=== PATIENT | female | born 1950 | race Caucasian/White ===

== ENCOUNTER → 2019-03-24 | Outpatient (REF) | payer MEDICARE, BC | LOC: M LAB REF 13:41 | PROVIDERS: ATTEND Nurse Practitioner Family | DX: R30.0 Dysuria (principal) ==

== ENCOUNTER → 2019-11-30 | Outpatient (REF) | payer MEDICARE | LOC: M LAB REF 16:03 | PROVIDERS: ATTEND Registered Nurse | DX: R53.83 Other fatigue (principal); K21.9 Gastro-esophageal reflux disease without esophagitis ==

== ENCOUNTER → 2020-12-23 | Outpatient (REF) | payer MEDICARE ==
[2020-12-23 17:45] LABS: BACTERIA, URINE AUTO 1+ (NEGATIVE); MUCUS, URINE SMALL (NEGATIVE); RBC, URINE AUTO 3 /HPF (0-3); SQUAMOUS EPITHELIAL CELL UR AU 3 /HPF (0-6); WBC, URINE AUTO 7 /HPF (0-3)
== END ==
LOC: M LAB REF 16:22
PROVIDERS: ATTEND Physician Assistant Medical
DX: R35.0 Frequency of micturition (principal)

== ENCOUNTER → 2020-12-28 | Outpatient (CLI) | payer MEDICARE ==
--- NOTE | 2020-12-28 15:46 | REP ---
INDICATION: FLANK AND PELVIC PAIN WITH NAUSEA. COMPARISON: None. TECHNIQUE: Urinary tract sonography. FINDINGS: Scanning at the level of the urinary bladder shows no abnormality. Renal cortical echogenicity pattern is normal bilaterally and contours are smooth. There is no evidence of hydronephrosis, mass, or calculus in either kidney. The right kidney measures 10.3 x 5.6 x 4.9 cm. Left renal dimensions are 10.6 x 4.7 x 5.1 cm. There is a cyst in the left kidney upper pole region measuring 1.7 x 1.3 x 1.2 cm. IMPRESSION: Small cyst upper pole left kidney. No hydronephrosis seen. Otherwise negative urinary tract sonography.. <Electronically signed by Juan Louise > 12/28/20 [id number]
== END ==
LOC: M RAD 14:53
PROVIDERS: ATTEND Physician Assistant Medical
DX: R10.2 Pelvic and perineal pain (principal); R11.0 Nausea; N28.1 Cyst of kidney, acquired

== ENCOUNTER → 2021-02-03 | Outpatient (CLI) | payer MEDICARE ==
[~2021-02-03] MED LIST: BUSP10TA PO; CELE1CAP7 PO; CLON-412 PO; D200CAP3 PO; DULO1CAP6 PO; ISRA5CAP PO; OCUV1CAP4 PO; OMEGCAP4 PO; OMEP-218 PO; POTA1TAB23 PO; TORS20TA2 PO; VITMTA PO
== END ==
LOC: M LABSMTC 09:05
PROVIDERS: ATTEND Anesthesiology
DX: Z01.812 Encounter for preprocedural laboratory examination (principal); Z20.822 Contact with and (suspected) exposure to COVID-19

== ENCOUNTER 2021-02-08 10:48 | Day surgery (SDC) | payer MEDICARE ==
[~2021-02-08] VITALS: Ht 160 cm; Wt 108.9 kg
[~2021-02-08 10:48] MED LIST changes: +NS 1,000 ML IV ONE
[2021-02-08] MEDS ORDERED: propofoL 500 MG/50 ML VIAL As Ordered ONE (12:12)
[2021-02-08] MEDS ORDERED: LIDOCAINE 2% 100MG/5ML SDV (FOR ANES.) As Ordered ONE (12:17)
[2021-02-08] MEDS ORDERED: propofoL 200 MG/20 ML VIAL As Ordered ONE (13:30)
[2021-02-08 14:05] VITALS: BP 138/80
--- NOTE | 2021-02-08 14:12 | ROOR ---
Patient Name: Sandra Acevedo Procedure Date: 02/08/2021 12:38 PM Date of : 1950 Age: 70 Room: [facility] Gender: Female Note Status: Finalized Procedure: Colonoscopy Indications: High risk colon cancer surveillance: Personal history of colonic polyps, Last colonoscopy 3 years ago Providers: Keegan Burns MD Referring MD: Sandra Contreras NP Requesting Provider: Medicines: Monitored Anesthesia Care Complications: No immediate complications. Procedure: Pre-Anesthesia Assessment: - Prior to the procedure, a History and Physical was performed, and patient medications and allergies were reviewed. The patient is competent. The risks and benefits of the procedure and the sedation options and risks were discussed with the patient. All questions were answered and informed consent was obtained. Patient identification and proposed procedure were verified by the physician, the nurse and the corporate pilot in the procedure room. Mental Status Examination: alert and oriented. Prophylactic Antibiotics: The patient does not require prophylactic antibiotics. Prior Anticoagulants: The patient has taken no previous anticoagulant or antiplatelet agents. ASA Grade Assessment: III - A patient with severe systemic disease. After reviewing the risks and benefits, the patient was deemed in satisfactory condition to undergo the procedure. The anesthesia plan was to use monitored anesthesia care (MAC). Immediately prior to administration of medications, the patient was re-assessed for adequacy to receive sedatives. The heart rate, respiratory rate, oxygen saturations, blood pressure, adequacy of pulmonary ventilation, and response to care were monitored throughout the procedure. The physical status of the patient was re-assessed after the procedure. The Colonoscope was introduced through the anus and advanced to the cecum, identified by the ileocecal valve. The colonoscopy was performed with moderate difficulty due to a redundant colon. Successful completion of the procedure was aided by applying abdominal pressure. The patient tolerated the procedure well. The quality of the bowel preparation was adequate to identify polyps. Findings: Three sessile polyps were found in the ascending colon. The polyps were 5 to 10 mm in size. These polyps were removed with a cold snare. Resection and retrieval were complete. The pathology specimen was placed into Bottle Number 1. Estimated blood loss was minimal. Three sessile polyps were found from 70 to 90 cm proximal to the anus. The polyps were 6 to 15 mm in size. These polyps were removed with a cold snare. Resection and retrieval were complete. To prevent bleeding after the polypectomy, one hemostatic clip was successfully placed (MR conditional). There was no bleeding at the end of the procedure. Estimated blood loss was minimal. Several small pale polyps consistent with hyperplastic polyps were noted in the sigmoid and not resected. A 20 mm polyp was found in the sigmoid colon. The polyp was sessile. This was a raised somewhat darker appearing lesion with a coarse "cobblestone" appearance. There was no ulceration. It was soft. Possibly a chronically irritated mucosal fold. Appearance similar to the largest polyp from the group from 70-90 cm. I elected not to attmept resection and await path fom the previously resected polyps. Impression: - Three 5 to 10 mm polyps in the ascending colon, removed with a cold snare. Resected and retrieved. - Three 6 to 15 mm polyps from 70 to 90 cm proximal to the anus, removed with a cold snare. Resected and retrieved. Clip (MR conditional) was placed. - One 20 mm polyp in the sigmoid colon. Recommendation: - Discharge patient to home. - Resume previous diet. - Continue present medications. - Await pathology results. - Return to endoscopist as previously scheduled. Procedure Code(s): --- Professional --- 99290, Colonoscopy, flexible; with removal of tumor(s), polyp(s), or other lesion(s) by snare technique Diagnosis Code(s): --- Professional --- K63.5, Polyp of colon Z86.010, Personal history of colonic polyps CPT copyright 2019 [employer] [place] [employer]. All rights reserved. The codes documented in this report are preliminary and upon extractor operator review may be revised to meet current compliance requirements. Keegan Burns MD Keegan Burns MD 02/08/2021 2:11:44 PM Electronically signed by Keegan Burns MD Number of Addenda: 0 Note Initiated On: 02/08/2021 12:38 PM Estimated Blood Loss: Estimated blood loss was minimal.
== END 2021-02-08 14:24 | disposition home or self-care (01) ==
LOC: M OPP 10:48
PROVIDERS: ATTEND Surgery
DX: Z12.11 Encounter for screening for malignant neoplasm of colon (principal); Z86.010 Personal history of colon polyps; E66.01 Morbid (severe) obesity due to excess calories; K63.5 Polyp of colon; Z88.8 Allergy status to other drugs, medicaments and biological substances; Z87.891 Personal history of nicotine dependence

== ENCOUNTER 2021-09-13 11:05 | Day surgery (SDC) | payer MEDICARE ==
[~2021-09-13] VITALS: Ht 175.3 cm; Wt 113.9 kg
[~2021-09-13 11:05] MED LIST changes: +AMIT25TA17 PO; +AMLO1TAB25 PO; +CYCL-707 PO; +DOCU-153 PO; +LIDOCAINE 2% 100MG/5ML SDV (FOR ANES.) As Ordered ONE; +MELO15TA28 PO; +OMEP-173 PO; -OMEP-218 PO; +propofoL 200 MG/20 ML VIAL As Ordered ONE
[2021-09-13] MEDS ORDERED: propofoL 200 MG/20 ML VIAL As Ordered ONE (15:14)
[2021-09-13 16:15] VITALS: BP 136/74
== END 2021-09-13 16:26 | disposition home or self-care (01) ==
LOC: M OPP 11:05
PROVIDERS: ATTEND Surgery
DX: K63.5 Polyp of colon (principal); Z86.010 Personal history of colon polyps; Z09 Encounter for follow-up examination after completed treatment for conditions other than malignant neoplasm; Z79.84 Long term (current) use of oral hypoglycemic drugs; Z79.899 Other long term (current) drug therapy; Z88.8 Allergy status to other drugs, medicaments and biological substances; Z87.891 Personal history of nicotine dependence

== ENCOUNTER → 2021-12-18 | Outpatient (CLI) | payer MEDICARE, BC ==
[~2021-12-18] MED LIST changes: -LIDOCAINE 2% 100MG/5ML SDV (FOR ANES.) As Ordered ONE; -NS 1,000 ML IV ONE; -propofoL 200 MG/20 ML VIAL As Ordered ONE
[2021-12-18 11:01] LABS: HEMATOCRIT 45.9 % (36.0-47.0); HEMOGLOBIN 15.3 g/dl (12.0-15.5); MEAN CORPUSCULAR HEMOGLOBIN 29.5 pg (27.0-33.0); MEAN CORPUSCULAR HGB CONC 33.3 g/dl (32.0-36.5); MEAN CORPUSCULAR VOLUME 88.6 fl (80.0-96.0); PLATELET COUNT, AUTOMATED 273 10^3/uL (150-450); RED BLOOD COUNT 5.18 10^6/uL (4.00-5.40); WHITE BLOOD COUNT 7.9 10^3/uL (4.0-10.0)
[2021-12-18 11:13] LABS: INR 0.96; PROTHROMBIN TIME 13.2 SECONDS (12.7-14.5)
[2021-12-18 11:28] LABS: ERYTHROCYTE SEDIMENTATION RATE 7 mm/hr (0-30)
[2021-12-18 11:47] LABS: ALBUMIN 3.8 GM/DL (3.2-5.2); BILIRUBIN,TOTAL 0.5 MG/DL (0.2-1.0); CALCIUM LEVEL 8.5 MG/DL (8.8-10.2); CREATININE FOR GFR 1.07 MG/DL (0.55-1.30); GLOMERULAR FILTRATION RATE 53.5 (>39); POTASSIUM SERUM 3.8 MEQ/L (3.5-5.1); TOTAL PROTEIN 6.9 GM/DL (6.4-8.2)
== END ==
LOC: M RAD 09:52
PROVIDERS: ATTEND Orthopaedic Surgery
DX: M17.11 Unilateral primary osteoarthritis, right knee (principal)

== ENCOUNTER 2023-09-12 12:13 | Inpatient (IN) | payer MEDICARE ==
[~2023-09-12] VITALS: Ht 160 cm; Wt 132.3 kg
[~2023-09-12 12:13] MED LIST changes: -AMIT25TA17 PO; +AMIT25TA19 PO; -CELE1CAP7 PO; +CELE1CAP99 PO; -DOCU-153 PO; +STOO100C30 PO
[2023-09-12] MEDS ORDERED: GNP250TA9 PO (12:30)
[2023-09-12 13:19] LABS: HEMATOCRIT 52.5 % (36.0-47.0); HEMOGLOBIN 17.4 g/dl (12.0-15.5); MEAN CORPUSCULAR HEMOGLOBIN 29.7 pg (27.0-33.0); MEAN CORPUSCULAR HGB CONC 33.1 g/dl (32.0-36.5); MEAN CORPUSCULAR VOLUME 89.7 fl (80.0-96.0); PLATELET COUNT, AUTOMATED 331 10^3/uL (150-450); RED BLOOD COUNT 5.85 10^6/uL (4.00-5.40); WHITE BLOOD COUNT 24.4 10^3/uL (4.0-10.0)
[2023-09-12 13:35] LABS: CK-MB VALUE MASS 3.2 NG/ML (<3.6)
[2023-09-12 13:39] LABS: ALBUMIN 3.2 G/DL (3.2-5.2); BILIRUBIN,DIRECT 0.3 MG/DL (<0.4); BILIRUBIN,TOTAL 0.9 MG/DL (0.3-1.2); TOTAL PROTEIN 6.5 G/DL (5.7-8.2)
[2023-09-12 13:40] LABS: MB/CK RELATIVE INDEX 2.96 (< OR =4)
[2023-09-12 13:59] LABS: LYMPHOCYTES 6 % (16-44); MONOCYTES 3 % (0-5); NEUTROPHILS 78 % (28-66)
[2023-09-12 14:00] LABS: PLATELET ESTIMATE NORMAL (NORMAL)
[2023-09-12 14:37] LABS: CK-MB VALUE MASS 3.6 NG/ML (<3.6)
[2023-09-12 14:46] LABS: MB/CK RELATIVE INDEX 3.3 (< OR =4)
[2023-09-12] MEDS: NS 1,000 ML IV ONE ×2 (14:50→15:13)
[2023-09-12 14:57] LABS: CALCIUM LEVEL 8.5 MG/DL (8.3-10.6); CREATININE FOR GFR 1.97 MG/DL (0.55-1.30); GLOMERULAR FILTRATION RATE 26.3 (>39); POTASSIUM SERUM 4.2 MMOL/L (3.5-5.1)
[2023-09-12] MEDS: fentaNYL 100 MCG/2 ML INJECTION IV ONE (15:13)
[2023-09-12] MEDS: PIPERACILLIN/TAZOBACTAM SOD 4.5 GM in D5W MINI-BAG PLUS 50 ML IV ONE (16:23)
[2023-09-12] MEDS ORDERED: MAALOX 30 ML SUSP *UDC PO PRN (17:20)
[2023-09-12] MEDS ORDERED: THERTAB52 PO (18:04)
[2023-09-12] MEDS ORDERED: HOME MED LIST COMPLETE! XX SCH (18:05)
[2023-09-12] MEDS: NS 1,000 ML IV SCH (19:31)
[2023-09-12] MEDS: MORPHINE 2 MG/ML 1ML VIAL IV PRN (19:32)
[2023-09-12 19:36] LABS: PROCALCITONIN 10.58 ng/ml
[2023-09-12 19:37] LABS: C REACTIVE PROTEIN QUANTITATIV 27.8 MG/DL (<1.0)
[2023-09-12] MEDS: HEPARIN SOD (PORCINE) 5000UNITS/ML 1ML VIAL/SYRINGE SC SCH (21:12)
[2023-09-12] MEDS: ACETAMINOPHEN TAB 650MG DOSE (2X325MG) PO PRN (21:15)
[2023-09-12] MEDS: PIPERACILLIN/TAZOBACTAM SOD 3.375 GM in D5W MINI-BAG PLUS 50 ML IV SCH (21:57)
[2023-09-13] MEDS ORDERED: DEXTROMETHORPHAN 60MG/10ML SUSP 90ML BTL(DELSYM) PO PRN (02:35)
[2023-09-13] MEDS ORDERED: ALBUTEROL SULFATE 2.5MG/0.5ML INH NEB SOLN NEB PRN (02:35)
[2023-09-13] MEDS: methylPREDNISolone 125MG 2ML VIAL IV ONE (03:11)
[2023-09-13] MEDS: IPRATROPIUM 0.5MG/ALBUTEROL 2.5MG INH SOL UD 3ML (DUONEB) NEB PRN (03:19)
[2023-09-13] MEDS ORDERED: busPIRone 10 MG TAB PO PRN (07:20)
[2023-09-13] MEDS ORDERED: CYCLOBENZAPRINE 10MG TABLET PO PRN (07:20)
[2023-09-13 09:04] LABS: BASO # 0.1 10^3/uL (0.0-0.2); BASO % 0.3 % (0.0-1.0); HEMATOCRIT 44.2 % (36.0-47.0); LYMPH # 1.1 10^3/uL (1.5-5.0); LYMPH % 4.5 % (24.0-44.0); MEAN CORPUSCULAR HEMOGLOBIN 29.3 pg (27.0-33.0); MEAN CORPUSCULAR HGB CONC 33.3 g/dl (32.0-36.5); MONO # 0.4 10^3/uL (0.0-0.8); MONO % 1.7 % (2.0-8.0); NEUTROPHILS # 21.7 10^3/uL (1.5-8.5); NEUTROPHILS % 92.5 % (36.0-66.0); PLATELET COUNT, AUTOMATED 297 10^3/uL (150-450); RED BLOOD COUNT 5.02 10^6/uL (4.00-5.40); WHITE BLOOD COUNT 23.4 10^3/uL (4.0-10.0)
[2023-09-13 09:13] LABS: HEMOGLOBIN 14.7 g/dl (12.0-15.5)
[2023-09-13 09:31] LABS: CALCIUM LEVEL 8.1 MG/DL (8.3-10.6); CREATININE FOR GFR 1.79 MG/DL (0.55-1.30); GLOMERULAR FILTRATION RATE 29.4 (>39); MAGNESIUM LEVEL 1.8 MG/DL (1.8-2.4)
[2023-09-13] MEDS: MOM 30ML SUSPENSION UDC PO PRN (10:05)
[2023-09-13] MEDS: OMEPRAZOLE 20MG CAP PO SCH (10:09)
[2023-09-13] MEDS: cloNIDine 0.1MG TABLET PO SCH (10:09)
[2023-09-13 12:50] VITALS: BP 136/76; TEMP 97; O2SAT 88
[2023-09-13 14:35] VITALS: BP 149/81; TEMP 97.2; O2SAT 91
[2023-09-13 20:58] VITALS: BP 150/79; TEMP 98.2; O2SAT 90
[2023-09-13] MEDS ORDERED: DULoxetine 30MG CAPSULE (CYMBALTA) PO SCH (21:00)
[2023-09-14] VITALS (8 sets, daily range): BP systolic 135–176; BP diastolic 71–85; TEMP 97.5–99.4; O2SAT 90–94
[2023-09-14 06:23] LABS: BASO % 0.2 % (0.0-1.0); HEMATOCRIT 42.7 % (36.0-47.0); HEMOGLOBIN 13.5 g/dl (12.0-15.5); LYMPH # 1.4 10^3/uL (1.5-5.0); LYMPH % 7.7 % (24.0-44.0); MEAN CORPUSCULAR HEMOGLOBIN 28.8 pg (27.0-33.0); MEAN CORPUSCULAR HGB CONC 31.6 g/dl (32.0-36.5); MEAN CORPUSCULAR VOLUME 91.2 fl (80.0-96.0); MONO # 0.8 10^3/uL (0.0-0.8); MONO % 4.3 % (2.0-8.0); NEUTROPHILS # 16.1 10^3/uL (1.5-8.5); NEUTROPHILS % 86.9 % (36.0-66.0); PLATELET COUNT, AUTOMATED 295 10^3/uL (150-450); RED BLOOD COUNT 4.68 10^6/uL (4.00-5.40); WHITE BLOOD COUNT 18.5 10^3/uL (4.0-10.0)
[2023-09-14 06:45] LABS: CALCIUM LEVEL 8.3 MG/DL (8.3-10.6); CREATININE FOR GFR 1.2 MG/DL (0.55-1.30); GLOMERULAR FILTRATION RATE 46.6 (>39); MAGNESIUM LEVEL 2.2 MG/DL (1.8-2.4); POTASSIUM SERUM 3.6 MMOL/L (3.5-5.1)
[2023-09-14 06:56] LABS: PROCALCITONIN 2.6 ng/ml
[2023-09-14] MEDS: GASTROGRAFIN SOLUTION 30ML PO SCH (09:54)
[2023-09-14] MEDS ORDERED: ISOVUE-370 76% 100ML VIAL As Ordered ONE (10:55)
[2023-09-14 13:07] LABS: MYCOPLASMA PNEUMONIAE IgG 521 U/mL (0-99); MYCOPLASMA PNEUMONIAE IgM <770 U/mL (0-769)
[2023-09-15 06:04] VITALS: BP 176/104; TEMP 98.6; O2SAT 93
[2023-09-15 07:13] LABS: BASO % 0.2 % (0.0-1.0); EOS % 0.2 % (0.0-3.0); HEMOGLOBIN 13.5 g/dl (12.0-15.5); LYMPH # 1.4 10^3/uL (1.5-5.0); MEAN CORPUSCULAR HGB CONC 32.1 g/dl (32.0-36.5); MEAN CORPUSCULAR VOLUME 90.3 fl (80.0-96.0); MONO # 0.9 10^3/uL (0.0-0.8); MONO % 6.9 % (2.0-8.0); NEUTROPHILS % 80.7 % (36.0-66.0); PLATELET COUNT, AUTOMATED 302 10^3/uL (150-450); RED BLOOD COUNT 4.65 10^6/uL (4.00-5.40); WHITE BLOOD COUNT 12.4 10^3/uL (4.0-10.0)
[2023-09-15 07:41] LABS: CALCIUM LEVEL 8.2 MG/DL (8.3-10.6); CREATININE FOR GFR 1.01 MG/DL (0.55-1.30); GLOMERULAR FILTRATION RATE 56.9 (>39); MAGNESIUM LEVEL 1.8 MG/DL (1.8-2.4); POTASSIUM SERUM 3.8 MMOL/L (3.5-5.1)
[2023-09-15] MEDS: SENOKOT S TAB PO SCH (10:20)
[2023-09-15 14:00] VITALS: BP 134/79; TEMP 99; O2SAT 94
[2023-09-15] MEDS: RAMELTEON 8 MG TAB (ROZEREM) PO SCH (21:36)
[2023-09-15] MEDS: DULoxetine 30MG CAPSULE (CYMBALTA) PO SCH (21:37)
[2023-09-15 21:50] VITALS: BP 138/72; TEMP 98.8; O2SAT 95
[2023-09-16 05:41] VITALS: BP 136/74; TEMP 98.6; O2SAT 91
[2023-09-16 06:43] LABS: BASO # 0.1 10^3/uL (0.0-0.2); BASO % 0.6 % (0.0-1.0); EOS # 0.1 10^3/uL (0.0-0.5); EOS % 0.5 % (0.0-3.0); HEMATOCRIT 42.2 % (36.0-47.0); HEMOGLOBIN 13.7 g/dl (12.0-15.5); LYMPH # 1.6 10^3/uL (1.5-5.0); LYMPH % 12.1 % (24.0-44.0); MEAN CORPUSCULAR HEMOGLOBIN 28.7 pg (27.0-33.0); MEAN CORPUSCULAR HGB CONC 32.5 g/dl (32.0-36.5); MEAN CORPUSCULAR VOLUME 88.5 fl (80.0-96.0); MONO # 1.2 10^3/uL (0.0-0.8); MONO % 8.7 % (2.0-8.0); NEUTROPHILS # 10.3 10^3/uL (1.5-8.5); NEUTROPHILS % 75.8 % (36.0-66.0); PLATELET COUNT, AUTOMATED 323 10^3/uL (150-450); RED BLOOD COUNT 4.77 10^6/uL (4.00-5.40); WHITE BLOOD COUNT 13.6 10^3/uL (4.0-10.0)
[2023-09-16 07:08] LABS: BLOOD UREA NITROGEN 25 MG/DL (9-23); CARBON DIOXIDE LEVEL 25 MMOL/L (20-31); CHLORIDE LEVEL 107 MMOL/L (98-107); GLOMERULAR FILTRATION RATE > 60.0 (>39); GLUCOSE, FASTING 151 MG/DL (74-106); MAGNESIUM LEVEL 1.8 MG/DL (1.8-2.4); POTASSIUM SERUM 3.6 MMOL/L (3.5-5.1); SODIUM LEVEL 140 MMOL/L (136-145)
[2023-09-16 07:24] LABS: HEMOGLOBIN A1c 5.8 % (4.0-6.0)
[2023-09-16 14:00] VITALS: BP 134/80; TEMP 97; O2SAT 91
[2023-09-16] MEDS: metroNIDAZOLE (FLAGYL) 500MG TABLET PO SCH (15:17)
[2023-09-16] MEDS: CEFDINIR 300 MG CAP (OMNICEF) PO ONE (15:17)
[2023-09-16 21:22] VITALS: BP 134/68; TEMP 98.8; O2SAT 92
[2023-09-16] MEDS: CEFDINIR 300 MG CAP (OMNICEF) PO SCH (21:24)
[2023-09-17 05:24] VITALS: BP 144/80; TEMP 97; O2SAT 91
[2023-09-17 06:40] LABS: BASO # 0.1 10^3/uL (0.0-0.2); BASO % 0.6 % (0.0-1.0); EOS # 0.3 10^3/uL (0.0-0.5); HEMATOCRIT 43.1 % (36.0-47.0); HEMOGLOBIN 13.9 g/dl (12.0-15.5); LYMPH # 1.9 10^3/uL (1.5-5.0); LYMPH % 14.9 % (24.0-44.0); MEAN CORPUSCULAR HEMOGLOBIN 28.9 pg (27.0-33.0); MEAN CORPUSCULAR HGB CONC 32.3 g/dl (32.0-36.5); MEAN CORPUSCULAR VOLUME 89.6 fl (80.0-96.0); MONO # 0.9 10^3/uL (0.0-0.8); MONO % 7.2 % (2.0-8.0); NEUTROPHILS # 9.1 10^3/uL (1.5-8.5); NEUTROPHILS % 71.6 % (36.0-66.0); PLATELET COUNT, AUTOMATED 329 10^3/uL (150-450); RED BLOOD COUNT 4.81 10^6/uL (4.00-5.40); WHITE BLOOD COUNT 12.7 10^3/uL (4.0-10.0)
[2023-09-17 06:54] LABS: BLOOD UREA NITROGEN 20 MG/DL (9-23); CALCIUM LEVEL 7.9 MG/DL (8.3-10.6); CARBON DIOXIDE LEVEL 26 MMOL/L (20-31); CHLORIDE LEVEL 110 MMOL/L (98-107); CREATININE FOR GFR 0.73 MG/DL (0.55-1.30); GLOMERULAR FILTRATION RATE > 60.0 (>39); GLUCOSE, FASTING 125 MG/DL (74-106); MAGNESIUM LEVEL 1.8 MG/DL (1.8-2.4); POTASSIUM SERUM 3.8 MMOL/L (3.5-5.1); SODIUM LEVEL 143 MMOL/L (136-145)
[2023-09-17 08:00] VITALS: BP 132/82; TEMP 97.7; O2SAT 93
[2023-09-17 10:34] VITALS: BP 132/82
[2023-09-17] MEDS ORDERED: AZIT-12 PO (10:36)
[2023-09-17] MEDS ORDERED: METR-265 PO (10:36)
[2023-09-17] MEDS ORDERED: CEFD1CAP9 PO (10:36)
[2023-09-17] MEDS: MOM 30ML SUSPENSION UDC PO ONE (10:39)
[2023-09-17 16:13] LABS: BODY FLUID CULTURE Not indicated. (.); LEGIONELLA ANTIGEN URINE Negative (Negative); ORGANISM ID Not indicated. (.); SPECIMEN SOURCE Urine (.); URINE STREP PNEUMONIAE ANTIGEN Negative (Negative)
== END 2023-09-17 13:45 | disposition home or self-care (01) | DRG 193 ==
LOC: M ED 12:13 → M ED INP 17:18 → ENRESERV 09-13 11:55 → M MSPAV 09-13 12:46
PROVIDERS: ADMIT Student in an Organized Health Care Education/Training Program; ATTEND General Practice
DX: J18.9 Pneumonia, unspecified organism (principal); J96.01 Acute respiratory failure with hypoxia; Z68.43 Body mass index [BMI] 50.0-59.9, adult; E87.20 Acidosis, unspecified; N17.9 Acute kidney failure, unspecified; J98.11 Atelectasis; K52.9 Noninfective gastroenteritis and colitis, unspecified; I10 Essential (primary) hypertension; E66.01 Morbid (severe) obesity due to excess calories; M19.90 Unspecified osteoarthritis, unspecified site; K80.20 Calculus of gallbladder without cholecystitis without obstruction; F41.9 Anxiety disorder, unspecified; D35.00 Benign neoplasm of unspecified adrenal gland; Z79.899 Other long term (current) drug therapy; Z88.8 Allergy status to other drugs, medicaments and biological substances

== ENCOUNTER 2023-10-30 12:01 | Day surgery (SDC) | payer MEDICARE ==
[~2023-10-30] VITALS: Ht 160 cm; Wt 124.3 kg
[~2023-10-30 12:01] MED LIST changes: +AZIT-12 PO; +CEFD1CAP9 PO; +GNP250TA9 PO; +METR-265 PO; +NS 1,000 ML IV ONE; +PANT40TA29 PO; +THERTAB52 PO; +TRAZ-252 PO
[2023-10-30] MEDS ORDERED: propofoL 200 MG/20 ML VIAL As Ordered ONE (14:42)
[2023-10-30] MEDS ORDERED: LIDOCAINE 2% 100MG/5ML SDV (FOR ANES.) As Ordered ONE (14:42)
[2023-10-30] MEDS ORDERED: fentaNYL 100 MCG/2 ML INJECTION As Ordered ONE (14:45)
[2023-10-30 15:37] VITALS: TEMP 98.9
[2023-10-30 16:00] VITALS: BP 131/65; O2SAT 94
== END 2023-10-30 16:03 | disposition home or self-care (01) ==
LOC: M OPP 12:01
PROVIDERS: ATTEND Surgery
DX: K44.9 Diaphragmatic hernia without obstruction or gangrene (principal); K31.89 Other diseases of stomach and duodenum; Z98.84 Bariatric surgery status; R93.3 Abnormal findings on diagnostic imaging of other parts of digestive tract; R10.12 Left upper quadrant pain; I10 Essential (primary) hypertension; G47.9 Sleep disorder, unspecified; Z87.891 Personal history of nicotine dependence; Z79.1 Long term (current) use of non-steroidal anti-inflammatories (NSAID); Z79.810 Long term (current) use of selective estrogen receptor modulators (SERMs); Z79.891 Long term (current) use of opiate analgesic; Z79.899 Other long term (current) drug therapy; Z88.8 Allergy status to other drugs, medicaments and biological substances
CPT/HCPCS: 43239; 88305; J3010

== ENCOUNTER → 2024-01-26 | Outpatient (CLI) | payer MEDICARE ==
[~2024-01-26] MED LIST changes: -NS 1,000 ML IV ONE
== END ==
LOC: M SLEEP 20:00
PROVIDERS: ATTEND Internal Medicine Critical Care Medicine
DX: G47.33 Obstructive sleep apnea (adult) (pediatric) (principal)

== ENCOUNTER → 2024-02-20 | Outpatient (CLI) | payer MEDICARE | LOC: M PLAIMG 12:43 | PROVIDERS: ATTEND Internal Medicine Critical Care Medicine | DX: R91.1 Solitary pulmonary nodule (principal); J98.11 Atelectasis; I51.7 Cardiomegaly; I25.10 Atherosclerotic heart disease of native coronary artery without angina pectoris; K44.9 Diaphragmatic hernia without obstruction or gangrene; E05.90 Thyrotoxicosis, unspecified without thyrotoxic crisis or storm; K80.20 Calculus of gallbladder without cholecystitis without obstruction; K76.89 Other specified diseases of liver ==

== ENCOUNTER → 2024-03-28 | Outpatient (CLI) | payer MEDICARE | LOC: M SLEEP 20:00 | PROVIDERS: ATTEND Internal Medicine Critical Care Medicine | DX: G47.33 Obstructive sleep apnea (adult) (pediatric) (principal) ==

== ENCOUNTER → 2025-02-23 | Outpatient (CLI) | payer MEDICARE | LOC: M PLAIMG 11:23 | PROVIDERS: ATTEND Internal Medicine Critical Care Medicine | DX: R91.1 Solitary pulmonary nodule (principal) ==

== ENCOUNTER → 2025-03-25 | Outpatient (CLI) | payer MEDICARE ==
[~2025-03-25] MED LIST changes: +ISOVUE-370 76% 100 ML VIAL As Ordered ONE
== END ==
LOC: M RAD 13:23
PROVIDERS: ATTEND Nurse Practitioner Adult Health
DX: E27.9 Disorder of adrenal gland, unspecified (principal); E05.20 Thyrotoxicosis with toxic multinodular goiter without thyrotoxic crisis or storm; R91.1 Solitary pulmonary nodule
CPT/HCPCS: 71260; 76536; Q9967

== ENCOUNTER → 2025-06-02 | Outpatient (CLI) | payer MEDICARE ==
[~2025-06-02] MED LIST changes: +ACET-1349 PO; -ISOVUE-370 76% 100 ML VIAL As Ordered ONE
[2025-06-02 13:03] LABS: FREE T4 1.15 NG/DL (0.89-1.76)
== END ==
LOC: M LAB 12:02
PROVIDERS: ATTEND Otolaryngology
DX: D44.0 Neoplasm of uncertain behavior of thyroid gland (principal)